=== PATIENT | female | born 1960 | race Caucasian/White ===

== ENCOUNTER 2017-01-03 18:48 | Emergency (ER) | payer MEDICAID ==
[~2017-01-03] VITALS: Ht 160 cm; Wt 74.5 kg
[2017-01-03 19:29] VITALS: Ht 160 cm; Wt 74.5 kg
[2017-01-03] MEDS ORDERED: HYDR-906 PO (19:50)
--- NOTE | 2017-01-03 20:16 | ERD ---
ER Documentation Chief Complaint Date/Time DATE: 01/03/17 TIME: 20:12 Chief Complaint low back pain x1 week. denies trauma HPI 56-year-old female presents with emergency department for complaints of left lower back pain is started one week ago. Patient described the pain as sharp pain, 8/10 scale, is worse upon movement accompanied with muscle spasms. Patient denies any fall, trauma, numbness or tingling. Patient denies any injury on affected area. Patient denies any deformity. Patient is able to ambulate without any difficulty. Patient was seen by primary care doctor 2 days ago, was given ibuprofen and Flexeril with mild relief. Patient has a scheduled x-ray tomorrow with primary care doctor. ROS All systems reviewed and are negative except as per history of present illness. Medications Home Meds Active Scripts Hydrocodone/Acetaminophen (Barry 5-325 Tablet) 1 Each Tablet, 1 TAB PO Q6H Y for SEVERE PAIN LEVEL 7-10, #20 TAB Prov:JACKELIN AUGUST NP 01/03/17 Allergies Allergies: Coded Allergies: amlodipine (Verified Allergy, Unknown, 01/03/17) atorvastatin (Verified Allergy, Unknown, 01/03/17) ibuprofen (Verified Allergy, Unknown, 01/03/17) montelukast (Verified Allergy, Unknown, 01/03/17) Uncoded Allergies: HCTZ (Allergy, Unknown, 01/03/17) PMhx/Soc Medical and Surgical Hx: pt denies Medical Hx, pt denies Surgical Hx FmHx Family History: No coronary disease, No diabetes, No other Physical Exam Vitals Vital Signs Date Time Temp Pulse Resp B/P Pulse Ox O2 Delivery O2 Flow Rate FiO2 01/03/17 19:29 97.7 71 20 159/77 98 Physical Exam GENERAL: The patient is well developed and appropriate for usual state of health, in no apparent distress. CHEST: Clear to auscultation bilaterally. There are no rales, wheezes or rhonchi. HEART: Regular rate and rhythm. No murmurs, clicks, rubs or gallops. No S3 or S4. ABDOMEN: Soft, nontender and nondistended. Good bowel sounds. No rebound or guarding. No gross peritonitis. No gross organomegaly or masses. No Mixon sign or McBurney point tenderness. BACK: No midline or flank tenderness. Muscle spasms noted in the left paraspinal aspect of the lumbar spine, able to do full range of motion without any restriction. EXTREMITIES: Equal pulses bilaterally. There is no peripheral clubbing, cyanosis or edema. No focal swelling or erythema. Full range of motion. Grossly neurovascularly intact. NEURO: Alert and oriented. Cranial nerves 2-12 intact. Motor strength in all 4 extremities with 5/5 strength. Sensation grossly intact. Normal speech and gait. SKIN: There is no apparent rash or petechia. The skin is warm and dry. HEMATOLOGIC AND LYMPHATIC: There is no evidence of excessive bruising or lymphedema. No gross cervical, axillary, or inguinal lymphadenopathy. Procedures/MDM Medical Decision Making: Patient's pain is most likely consistent with a back strain. There is no suspicion for neurovascular compromise. Patient has intact sensation and circulation of the affected extremity and distal extremities. No incontinence, no suspicion for cauda equina syndrome, no saddle anesthesia, no symptoms of any acute bacterial infection..There is low suspicion for septic arthritis. Patient does not have any fever. Radiology exam not indicated at this time. Disposition: Home. Patient is given prescription for Barry for severe pain, continue ibuprofen and Flexeril. Patient was advised to avoid heavy lifting , apply warm compresses on affected area. Patient was advised that if symptoms are worse, numbness, tingling, high fever, unable to move joint, worsening symptoms, to return to emergency department immediately. Otherwise, patient is advised to follow up with the primary care doctor in 5-7 days for reevaluation of symptoms. Departure Diagnosis: Primary Impression: Back pain Back pain location: low back pain Chronicity: acute Back pain laterality: left Sciatica presence: without sciatica Qualified Code: M54.5 - Acute left- sided low back pain without sciatica Condition: Stable Patient Instructions: Back Pain (Acute Or Chronic) JACKELIN AUGUST NP Jan 03, 2017 20:16
== END 2017-01-03 19:52 | disposition home or self-care (01) ==
LOC: E/R 18:48
DX: M54.5 Low back pain (principal)
CPT/HCPCS: 99283

== ENCOUNTER 2017-01-05 10:25 | Emergency (ER) | payer MEDICAID ==
[~2017-01-05] VITALS: Ht 160 cm; Wt 85.0 kg
[~2017-01-05 10:25] MED LIST: HYDR-906 PO
[2017-01-05 10:26] VITALS: Ht 160 cm; Wt 85.0 kg
[2017-01-05] MEDS ORDERED: morphine 4 MG/ML VIAL IV STA (11:37)
[2017-01-05] MEDS ORDERED: KETOROLAC 30 MG INJ IV STA (11:37)
[2017-01-05] MEDS ORDERED: ONDANSETRON 4 MG INJ IV STA (11:37)
[2017-01-05] MEDS ORDERED: SOD CHLORIDE 0.9% 1,000 ML IV STA (11:37)
[2017-01-05 12:22] LABS: ADD SCAN DIFF NO
[2017-01-05 12:23] LABS: ADD UMIC YES; URINE BILIRUBIN (Dip) NEGATIVE (NEGATIVE); URINE BLOOD (Dip) TRACE (NEGATIVE); URINE COLOR LT. YELLOW (YELLOW); URINE GLUCOSE (Dip) NEGATIVE (NEGATIVE); URINE KETONES (Dip) NEGATIVE (NEGATIVE); URINE LEUKOCYTE ESTERASE (Dip) NEGATIVE (NEGATIVE); URINE NITRITE (Dip) NEGATIVE (NEGATIVE); URINE TOTAL PROTEIN (Dip) NEGATIVE (NEGATIVE); URINE UROBILINOGEN (Dip) 0.2 E.U./dL (0.1-1.0)
[2017-01-05 12:25] LABS: BASOPHILS % 0.5 % (0.0-2.0); EOSINOPHILS # 0.1 10^3/ul (0.0-0.5); EOSINOPHILS % 1.4 % (0.0-7.0); HEMATOCRIT 40.2 % (37.0-47.0); HEMOGLOBIN 13.4 g/dl (12.0-16.0); LYMPHOCYTES # 2.3 10^3/ul (0.8-2.9); LYMPHOCYTES % 27.7 % (15.0-51.0); MEAN CORPUSCULAR HGB CONC 33.3 g/dl (32.0-37.0); MONOCYTE # 0.7 10^3/ul (0.3-0.9); MONOCYTES % 7.9 % (0.0-11.0); NEUTROPHIL # 5.2 10^3/ul (1.6-7.5); PLATELET COUNT 311 10^3/UL (140-415); RED BLOOD COUNT 4.96 10^6/ul (4.20-5.40); WHITE BLOOD COUNT 8.4 10^3/ul (4.8-10.8)
[2017-01-05 12:40] LABS: INR 0.91; PROTIME 12.2 Sec (12.2-14.2)
[2017-01-05 12:41] LABS: PARTIAL THROMBOPLASTIN TIME 24.3 Sec (25.0-35.0)
[2017-01-05 12:42] LABS: ALBUMIN 5.1 g/dl (3.3-4.9); ALBUMIN/GLOBULIN RATIO 1.5; BILIRUBIN,INDIRECT 0.4 mg/dl (0-1.1); BILIRUBIN,TOTAL 0.4 mg/dl (0.2-1.3); CREATININE 0.67 mg/dl (0.44-1.00); POTASSIUM 3.2 mmol/L (3.5-5.1); TOTAL PROTEIN 8.5 g/dl (6.1-8.1)
[2017-01-05 12:45] LABS: CALCIUM 9.7 mg/dl (8.4-10.2)
--- NOTE | 2017-01-05 13:04 | RADRPT ---
PROCEDURE: CT Abdomen and Pelvis without contrast. CLINICAL INDICATION: Abdominal pain TECHNIQUE: CT scan of the abdomen and pelvis was performed on a multidetector high-resolution CT s canner without intravenous contrast. Coronal and sagittal reformatted images were obtained from the axial source images. Images were reviewed on a high-resolution PACS workstation. The total exam CTD I equals 20mGy and the total exam DLP equals 1123mGy-cm. One or more of the following dose reduction techniques were used: Automated exposure control, Adjustment of the mA and/or kV according to patie nt size, and/or use of iterative reconstruction technique. COMPARISON: None. FINDINGS: Evaluation of the solid organs is limited given the lack of intravenous contrast administration. The lung bases are clear. The liver, pancreas, spleen, and adrenals are grossly unremarkable. No focal pericholecystic inflammatory changes. No hydronephrosis. 1mm calcification in the right renal parenchyma. No obstructing renal stone. No bowel obstruction. Normal-caliber appendix. No retroperitoneal lymphadenopathy, ascites or evidence of pneumoperitoneum. 1.7 cm partially calcified structure in the right tahmina pelvis is of uncertain origin. IMPRESSION: No evidence of bowel obstruction. Normal-caliber appendix. 1mm calcification in the right renal parenchyma. No obstructing renal stone. 1.7 cm partially calcified structure in the right tahmina pelvis is of uncertain origin and represent a calcified lymph node or calcified right adnexal structure. If warranted, consider outpatient follo w-up with pelvic ultrasound. RPTAT: AA .Agustín Hodges MD, MD Date Time Electronically viewed and signed by .Agustín Hodges MD, MD on 01/05/2017 13:04 .T/
[2017-01-05] MEDS ORDERED: DIAZEPAM 5 MG/ML SYG IV ONE (13:30)
[2017-01-05] MEDS ORDERED: CYCL-319 PO (14:02)
[2017-01-05 14:14] VITALS: BP 134/68; PULSE 73; RESP 20
--- NOTE | 2017-01-05 16:21 | ERD ---
ER Documentation Chief Complaint Date/Time DATE: 01/05/17 TIME: 16:12 Chief Complaint here last tuesday, still has back pain HPI This patient is a 56-year-old female presenting to the emergency department for left flank pain ongoing intermittently for the past 6 days. The patient was seen here a few days ago with similar complaints and she was diagnosed with left -sided low back pain. Her symptoms are currently severe. Exacerbating factors include walking. She denies radiation to the legs. Pain is constant and sharp. She has been taking Horicon at home with only mild relief of symptoms. She denies loss of bowel or bladder function, fevers, chills, nausea, vomiting, diarrhea, or other symptoms. ROS All systems reviewed and are negative except as per history of present illness. Medications Home Meds Active Scripts Cyclobenzaprine Hcl* (Cyclobenzaprine Hcl*) 10 Mg Tablet, 10 MG PO TID, #15 TAB Prov:TASHA FLORES PA-C 01/05/17 Hydrocodone/Acetaminophen (Horicon 5-325 Tablet) 1 Each Tablet, 1 TAB PO Q6H Y for SEVERE PAIN LEVEL 7-10, #20 TAB Prov:JACKELIN AUGUST NP 01/03/17 Allergies Allergies: Coded Allergies: No Known Allergy (Unverified , 01/05/17) PMhx/Soc Medical and Surgical Hx: pt denies Medical Hx, pt denies Surgical Hx Hx Alcohol Use: No Hx Substance Use: No Hx Tobacco Use: No Smoking Status: Never smoker FmHx Noncontributory for chief complaint Physical Exam Vitals Vital Signs Date Time Temp Pulse Resp B/P Pulse Ox O2 Delivery O2 Flow Rate FiO2 01/05/17 14:14 73 20 134/68 99 Room Air 01/05/17 10:26 98.1 73 18 156/74 99 Physical Exam Const: Nontoxic-appearing female in mild distress secondary to pain. Head: Atraumatic Eyes: Normal Conjunctiva ENT: Normal External Ears, Nose and Mouth. Neck: Full range of motion..~ No meningismus. Resp: Clear to auscultation bilaterally Cardio: Regular rate and rhythm, no murmurs Abd: Soft, non tender, non distended. Normal bowel sounds. Skin: No petechiae or rashes Back: No midline tenderness. There is flank tenderness noted on the left side. Negative straight leg raise bilaterally. Ext: No cyanosis, or edema Neur: Awake and alert Psych: Normal Mood and Affect Result Diagram: 01/05/17 1210 01/05/17 1210 Results 24 hrs Laboratory Tests Test 01/05/17 12:10 White Blood Count 8.410^3/ul Red Blood Count 4.9610^6/ul Hemoglobin 13.4g/dl Hematocrit 40.2% Mean Corpuscular Volume 81.0fl Mean Corpuscular Hemoglobin 27.0pg Mean Corpuscular Hemoglobin Concent 33.3g/dl Red Cell Distribution Width 14.0% Platelet Count 61671^3/UL Mean Platelet Volume 11.0fl Neutrophils % 62.0% Lymphocytes % 27.7% Monocytes % 7.9% Eosinophils % 1.4% Basophils % 0.5% Nucleated Red Blood Cells % 0.0/100WBC Neutrophils # 5.210^3/ul Lymphocytes # 2.310^3/ul Monocytes # 0.710^3/ul Eosinophils # 0.110^3/ul Basophils # 0.010^3/ul Nucleated Red Blood Cells # 0.010^3/ul Prothrombin Time 12.2Sec Prothrombin Time Ratio 1.0 INR International Normalized Ratio 0.91 Activated Partial Thromboplast Time 24.3Sec Urine Color LT. YELLOW Urine Clarity CLEAR Urine pH 6.0 Urine Specific Stitzer 1.020 Urine Ketones NEGATIVE Urine Nitrite NEGATIVE Urine Bilirubin NEGATIVE Urine Urobilinogen 0.2 E.U./dL Urine Leukocyte Esterase NEGATIVE Urine Microscopic RBC 2-5/HPF Urine Microscopic WBC 2-5/HPF Urine Hemoglobin TRACE Urine Glucose NEGATIVE% Urine Total Protein NEGATIVE Sodium Level 142mmol/L Potassium Level 3.2mmol/L Chloride Level 104mmol/L Carbon Dioxide Level 28mmol/L Anion Gap 13 Blood Urea Nitrogen 18mg/dl Creatinine 0.67mg/dl Glucose Level 109mg/dl Calcium Level 9.7mg/dl Total Bilirubin 0.4mg/dl Direct Bilirubin 0.00mg/dl Indirect Bilirubin 0.4mg/dl Aspartate Amino Transf (AST/SGOT) 31IU/L Alanine Aminotransferase (ALT/SGPT) 46IU/L Alkaline Phosphatase 88IU/L Total Protein 8.5g/dl Albumin 5.1g/dl Globulin 3.40g/dl Albumin/Globulin Ratio 1.50 Lipase 71U/L Current Medications Medications (Trade) Dose Ordered Sig/Thania Route PRN Reason Start Time Stop Time Status Last Admin Dose Admin Sodium Chloride (NS) 1,000 ml @ 1,000 mls/hr Q1H STAT IV 01/05/17 11:37 01/05/17 12:36 DC 01/05/17 12:12 Morphine Sulfate (morphine) 4 mg ONCE STAT IV 01/05/17 11:37 01/05/17 11:39 DC 01/05/17 12:11 Ondansetron HCl (Zofran Inj) 4 mg ONCE STAT IV 01/05/17 11:37 01/05/17 11:39 DC 01/05/17 12:11 Ketorolac Tromethamine (Toradol) 30 mg ONCE STAT IV 01/05/17 11:37 01/05/17 11:39 DC 01/05/17 12:11 Diazepam (Valium) 5 mg ONCE ONCE IV 01/05/17 13:30 01/05/17 13:31 DC 01/05/17 13:35 [place] [id number] Radiology Main Line: [phone] DIAGNOSTIC IMAGING REPORT Patient: INDIRA VORA : 1960 Age: 56 Sex: F [id number] DOS: 01/05/17 1137 Ordering MD: TASHA FLORES PA-C Location: [facility] Room/Bed: PROCEDURE: CT Abdomen and Pelvis without contrast. CLINICAL INDICATION: Abdominal pain TECHNIQUE: CT scan of the abdomen and pelvis was performed on a multidetector high-resolution CT scanner without intravenous contrast. Coronal and sagittal reformatted images were obtained from the axial source images. Images were reviewed on a high-resolution PACS workstation. The total exam CTDI equals 20mGy and the total exam DLP equals 1123mGy-cm. One or more of the following dose reduction techniques were used: Automated exposure control, Adjustment of the mA and/or kV according to patient size, and/or use of iterative reconstruction technique. COMPARISON: None. FINDINGS: Evaluation of the solid organs is limited given the lack of intravenous contrast administration. The lung bases are clear. The liver, pancreas, spleen, and adrenals are grossly unremarkable. No focal pericholecystic inflammatory changes. No hydronephrosis. 1mm calcification in the right renal parenchyma. No obstructing renal stone. No bowel obstruction. Normal-caliber appendix. No retroperitoneal lymphadenopathy, ascites or evidence of pneumoperitoneum. 1.7 cm partially calcified structure in the right tahmina pelvis is of uncertain origin. IMPRESSION: No evidence of bowel obstruction. Normal-caliber appendix. 1mm calcification in the right renal parenchyma. No obstructing renal stone. 1.7 cm partially calcified structure in the right tahmina pelvis is of uncertain origin and represent a calcified lymph node or calcified right adnexal structure. If warranted, consider outpatient follow-up with pelvic ultrasound. RPTAT: AA .Agustín Hodges MD, MD Date Time Electronically viewed and signed by .Agustín Hodges MD, on 01/05/2017 13:04 .T/ CC: TASHA FLORES PA-C Procedures/[facility] EMERGENCY DEPARTMENT COURSE / MEDICAL DECISION MAKING: This is a 56-year-old female who comes to the emergency room secondary to complaints of left-sided flank pain. The patient was given IV morphine, IV Toradol, IV Valium in the department. On re-evaluation, the patient was feeling improved. Lab results reviewed and showed no significant acute abnormalities. Radiology: CT abdomen and pelvis without contrast showed: No evidence of bowel obstruction. Normal-caliber appendix. 1mm calcification in the right renal parenchyma. No obstructing renal stone. 1.7 cm partially calcified structure in the right tahmina pelvis is of uncertain origin and represent a calcified lymph node or calcified right adnexal structure. If warranted, consider outpatient follow-up with pelvic ultrasound. The primary diagnosis is back pain of unclear etiology but may be secondary to muscle strain or spasm. I have low suspicion for acute abdomen, septicemia, or other emergent conditions at this time. Discharge: I have discussed the lab results and diagnostic findings with the patient and answered any questions or concerns. The patient was discharged with a prescription for Flexeril. The patient was advised to followup with their PMD in 1-2 days and to return to the Emergency Department if there are any new or worsening symptoms. The patient understood and agreed with the diagnosis, treatment and plan. The patient is stable for discharge at this time. Departure Diagnosis: Primary Impression: Back pain Condition: Fair Patient Instructions: Back Pain (Acute Or Chronic) [facility] Alpa se joshi hecho un examen mdico de control que le indica que no est en april condicin que requiera tratamiento urgente en el Departamento de Emergencia. Un estudio ms profundo y el tratamiento de hill condicin pueden esperar sin ningn riesgo hasta que usted sea atendida/o en el consultorio de hill mdico o april cl logan. Es responsabilidad suya arreglar april marika para el seguimiento del avtar. MANEJO DE CONDICIONES NO URGENTES EN EL FUTURO 1) Si usted tiene un mdico de atencin primaria: Usted debera llamar a hill mdico de atencin primaria antes de venir al departamento de emergencia. Despus de las horas de consultorio, hill doctor o hill asociado/a est disponible por telfono. El mdico o enfermero de [place] en el servicio telefnico puede asesorarle por bella medio para atender el problema, o avtar contrario se puede programar april marika. 2) Si usted no tiene un mdico de atencin primaria: Llame al mdico o clnica de referencia que aparece abajo dewey las horas de consultorio para hacer april marika para que le vean. CLINICAS: [facility] [phone] [facility] [phone] [facility] [phone] [facility]. [facility] [phone] [facility]. [facility] [phone] [facility]. [phone] [address] Additional Instructions: No mas mejor en 2-3 chisholm, regresar. Mas peor en 24 horas, regresear rapidamente. Ir a doctor primario in 5-7 chisholm. Usar instrucciones cuando meena medicamento. TASHA FLORES PA-C Jan 05, 2017 16:21
== END 2017-01-05 14:15 | disposition home or self-care (01) ==
LOC: FTE 10:25
DX: R10.9 Unspecified abdominal pain (principal)
CPT/HCPCS: 74176; 80053; 81001; 83690; 85025; 85610; 85730; J1885; J2270; J2405; J3360; J7030; 36415; 96374; 96375

== ENCOUNTER 2018-06-26 12:17 | Emergency (ER) | END 2018-06-26 17:36 | disposition home or self-care (01) ==